=== PATIENT | male | born 1955 | race Caucasian/White ===

== ENCOUNTER → 2021-06-17 08:25 | Outpatient (CLI) | payer MEDICARE, SELFPAY ==
--- NOTE | ~2021-06-17 | CT_ITS ---
EXAMINATION: CT lumbar spine wo con DATE: 06/17/2021 08:48 INDICATION: Low back pain. TECHNIQUE: Computed tomography (CT) of the lumbar spine was performed without intravenous contrast. A utomated exposure control and iterative reconstruction technique were employed. The dose-length produ ct was 987.22 mGy-cm. COMPARISON: None FINDINGS: There is 3 mm anterolisthesis of L4 on L5. There is 8 degrees levocurvature of lumbar spine . There is a Schmorl's node of inferior endplate of T12. There is mildly decreased disc height from L 1-L2 through L5-S1. There are changes of posterior fusion procedure from L3 to L5 with pedicle screws . The following disc levels are specifically discussed: L1-L2: The disc is bulging. There is moderate right and mild left facet joint osteoarthritis. There i s mild bilateral neural foraminal stenosis. There is mild central canal stenosis. L2-L3: The disc is bulging. There is severe bilateral facet joint osteoarthritis. There is moderate b ilateral neural foraminal stenosis. There is mild central canal stenosis. L3-L4: The disc is bulging. There is severe bilateral facet joint hypertrophy. There is mild bilatera l neural foraminal stenosis. There is no central canal stenosis. L4-L5: The disc does not extend beyond the endplate margin. There is severe bilateral facet joint hyp ertrophy. There is mild bilateral neural foraminal stenosis. There is mild central canal stenosis wit h posterior decompression. There is moderate stenosis of right lateral recess. L5-S1: The disc is bulging. There is severe bilateral facet joint osteoarthritis. There is moderate b ilateral neural foraminal stenosis. There is mild central canal stenosis with posterior decompression . IMPRESSION: 1. Moderate lumbar spondylosis. 2. Posterior fusion procedure from L3 to L5. Reviewed, dictated and finalized at location A. CONSULTANT
== END ==
DX: M47.817 Spondylosis without myelopathy or radiculopathy, lumbosacral region (principal); M48.07 Spinal stenosis, lumbosacral region; Z98.1 Arthrodesis status
CPT/HCPCS: 72131